=== PATIENT | male | born 1990 | race Caucasian/White ===

== ENCOUNTER 2025-05-16 00:12 | Emergency (ER) | payer OTHER, SELFPAY ==
[2025-05-16 00:38] VITALS: BP 143/95; PULSE 86; RESP 18; TEMP 36.1; O2SAT 100; BMI 39.0
[2025-05-16] MEDS: ONDANSETRON 4 MG/2 ML INJ IV ×2 (01:00→02:49)
[2025-05-16 01:11] LABS: Add Manual Diff / Slide Review NO; Hematocrit 46.7 % (41-53); Hemoglobin 16.1 g/dL (13.5-17.5); Lymphocytes Absolute Auto 2100 /uL (1100-4500); Mean Corpuscular HGB Conc 34.5 % (30-36); Mean Corpuscular Hemoglobin 27.5 PG (26-34); Mean Corpuscular Volume 79.9 fL (80-100); Platelet Count 380 X10^3/uL (150-400)
[2025-05-16 01:42] LABS: Alanine Aminotransferase 137 IU/L (<50); Albumin 5.3 g/dL (3.5-5.0); Albumin Globulin Ratio 1.4 (1.0-2.8); Alkaline Phosphatase 91 U/L (38-126); Blood Urea Nitrogen 13 mg/dL (9-20); Calcium 10.3 mg/dL (8.4-10.2); Carbon Dioxide 25 mmol/L (22-32); Chloride 106 mmol/L (98-107); Estimated Glomerular Filt Rate > 60 mL/min (>60); Globulin 3.8 g/dL (1.7-4.1); Glucose 117 mg/dL (70-99); HEMOLYSIS < 15 (0-50); Potassium 4.3 mmol/L (3.4-5.1); Sodium 146 mmol/L (137-145); Total Protein 9.1 g/dL (6.3-8.2)
[2025-05-16 02:45] VITALS: BP 143/87; PULSE 67; O2SAT 99
--- NOTE | 2025-05-16 02:51 | ED.NAVMDI ---
HPI - Nausea/Vomiting/Diarrhea General Chief complaint: Nausea/Vomiting/Diarrhea Stated complaint: Dehydration, vomiting, nausea Time Seen by Provider: 05/16/25 00:14 Source: patient Mode of arrival: Ambulatory History of Present Illness HPI Narrative: 35-year-old gentleman history of anxiety and nerve pain has been without his Effexor since last Tuesday as his medication was delayed in the mail presenting with multiple episodes of nonbilious nonbloody nausea vomiting diaphoresis and feeling dehydrated withdrawing from the medicines. This happened many years ago when he was 1st put on Effexor. Apparently Effexor will be arriving the male later today. Other than what is stated 14 point review of system is negative. Related Data Previous Rx's ?Medication ?Instructions ?Recorded ondansetron HCl 4 mg tablet 4 mg PO Q6H PRN nausea and 05/16/25 vomiting #30 tabs Allergies Allergy/AdvReac Type Severity Reaction Status Date / Time No Known Drug Allergies Allergy Verified 05/16/25 00:38 Review of Systems Review of Systems ROS Unobtainable: All systems reviewed & are unremarkable except as noted in HPI and below Patient History Smoking Status: Never smoker Exam Narrative Exam Narrative: GENERAL: [35] year old patient appears stated age. Well-developed patient, in mild distress. HEAD: Atraumatic. Normocephalic. EYES: Pupils equal round and reactive. Extraocular motions intact. No scleral icterus. No injection or drainage. ENT: Nose without bleeding, purulent drainage. Throat without erythema, tonsillar hypertrophy or exudate. Airway patent. NECK: Trachea midline. Non tender CARDIOVASCULAR: Regular rate and rhythm without murmurs, gallops, or rubs. RESPIRATORY: Clear to auscultation. Breath sounds equal bilaterally. No wheezes, rales, or rhonchi. GASTROINTESTINAL: Abdomen soft, non-tender, nondistended. EXTREMITIES: No edema or joint tenderness. BACK: Nontender without deformity or crepitance. No flank tenderness. NEURO: AOx3. SKIN: No rash or erythema of visible areas Initial Vital Signs Initial Vital Signs: Vital Signs Temperature 96.9 F L 05/16/25 00:38 Pulse Rate 86 05/16/25 00:38 Respiratory Rate 18 05/16/25 00:38 Blood Pressure 143/95 H 05/16/25 00:38 Pulse Oximetry 100 05/16/25 00:38 Oxygen Delivery Method Room Air 05/16/25 00:38 Course Orders Ordered: ED Orders 05/16/25 00:48 Complete Blood Count AUTO DIFF Stat Comprehensive Metabolic Panel Stat Ondansetron HCl (Ondansetron 4 Mg/2 Ml Inj) 4 mg IV NOW PRN PRN Reason: Nausea And Vomiting Last Admin: 05/16/25 01:00 Dose: 4 mg Documented By: CRISPIN Discontinued Medications Ondansetron HCl (Ondansetron 4 Mg/2 Ml Inj) 4 mg IV NOW ONE Stop: 05/16/25 02:48 Last Admin: 05/16/25 02:49 Dose: 4 mg Documented By: ILA Venlafaxine HCl (Venlafaxine Er 75 Mg Cap) 300 mg PO DAILY ADARSH Venlafaxine HCl (Venlafaxine Er 75 Mg Cap) 300 mg PO DAILY STA Stop: 05/16/25 01:05 Vital Signs Vital signs: Vital Signs - 8 hr 05/16/25 00:38 Temperature 96.9 F L Pulse Rate 86 Respiratory Rate 18 Blood Pressure 143/95 H Pulse Oximetry 100 Oxygen Delivery Method Room Air MDM - Nausea/Vomiting/Diarrhea Lab Data 05/16/25 00:48 05/16/25 00:48 Labs: Lab Results 05/16/25 Range/Units 00:48 WBC 10.9 (4.5-11.0) X10^3/uL RBC 5.84 (4.5-5.9) X10^6/uL Hgb 16.1 (13.5-17.5) g/dL Hct 46.7 (41-53) % MCV 79.9 L (80-100) fL MCH 27.5 (26-34) PG MCHC 34.5 (30-36) % RDW 13.9 (11.6-14.8) % Plt Count 380 (150-400) X10^3/uL Neut % (Auto) 75.5 H (50-75) % Lymph % (Auto) 19.3 L (25-40) % [place] % (Auto) 3.8 (3-14) % Eos % (Auto) 0.2 L (2-4) % Baso % (Auto) 1.2 (0-2) % Neut # (Auto) 8300 H (2950-4722) /uL Lymph # (Auto) 2100 (9931-2260) /uL [place] # (Auto) 400 (0-900) /uL Eos # (Auto) 0 (0-450) /uL Baso # (Auto) 100 (0-100) /uL Sodium 146 H (137-145) mmol/L Potassium 4.3 (3.4-5.1) mmol/L Chloride 106 (98-107) mmol/L Carbon Dioxide 25 (22-32) mmol/L BUN 13 (9-20) mg/dL Creatinine 1.01 (0.66-1.25) mg/dL Estimated GFR > 60 (>60) mL/min BUN/Creatinine Ratio 12.9 (6-22) Glucose 117 H (70-99) mg/dL Calcium 10.3 H (8.4-10.2) mg/dL Total Bilirubin 1.0 (0.2-1.3) mg/dL AST 107 H (17-59) IU/L ALT 137 H (<50) IU/L Alkaline Phosphatase 91 (38-126) U/L Total Protein 9.1 H (6.3-8.2) g/dL Albumin 5.3 H (3.5-5.0) g/dL Globulin 3.8 (1.7-4.1) g/dL Albumin/Globulin Ratio 1.4 (1.0-2.8) MDM Narrative Medical decision making narrative: All lab work, vital signs, nurse triage note, medication list, previous ER visits, and all imaging studies reviewed. Sodium 146, glucose 117, calcium 10.3, AST 107, ALT 137, patient given L of bolus of lactated Ringer's. Differential diagnosis includes electrolyte derangement, viral, Effexor withdrawal. Discharge Plan Departure Patient Disposition: Home Clinical Impression: Drug withdrawal Qualifiers: Substance type: other psychoactive substance Qualified Code(s): F19.939 - Other psychoactive substance use, unspecified with withdrawal, unspecified Nausea & vomiting Qualifiers: Vomiting type: unspecified Qualified Code(s): R11.2 - Nausea with vomiting, unspecified Instructions: Nausea and Vomiting-Adult Activity Restrictions/Additional Instructions: Return with new or worsening symptoms. Take your medicines. Keep hydrated. Follow up PCP 1-2 weeks if no improvement in symptoms. Prescriptions: New ondansetron HCl 4 mg tablet 4 mg PO Q6H PRN (Reason: nausea and vomiting) Qty: 30 0RF Stand Alone Forms: Patient Portal/API
--- NOTE | 2025-05-16 02:53 | PC.NURSE ---
Pt states that he has been without his Venlafaxine for a few days somehow lost in the mail. Has been having N/V for a few days.
[2025-05-16 03:00] VITALS: BP 141/78; PULSE 64; O2SAT 95
[2025-05-16] MEDS: VENLAFAXINE ER 75 MG CAP 300 MG PO (03:18)
[2025-05-16 03:30] VITALS: BP 158/84; PULSE 71; O2SAT 100
[2025-05-16 04:00] VITALS: BP 149/79; PULSE 95; RESP 20; O2SAT 97
== END 2025-05-16 04:32 | disposition home or self-care (01) ==
PROVIDERS: Emergency Provider Family Medicine
DX: F19.939 Other psychoactive substance use, unspecified with withdrawal, unspecified (principal); R11.2 Nausea with vomiting, unspecified
CPT/HCPCS: 36415; 80053; 85025; 96374; 96376; 99284; J2405